=== PATIENT | male | born 1985 | race Two or more races ===

== ENCOUNTER 2022-05-18 09:03 | Emergency (ER) | payer OTHER ==
[~2022-05-18] VITALS: Ht 188 cm; Wt 98.9 kg
== END 2022-05-18 15:46 | disposition home or self-care (01) ==
LOC: ER 09:03
DX: R10.9 Unspecified abdominal pain (principal)

== ENCOUNTER 2023-04-25 08:24 | Emergency (ER) | payer OTHER ==
[~2023-04-25] VITALS: Ht 188 cm; Wt 96.2 kg
[2023-04-25 09:29] LABS: URINE APPEARANCE Clear; URINE BILIRRUBIN Negative (NEGATIVE); URINE BLOOD Negative; URINE COLOR Yellow; URINE GLUCOSE Negative (NEGATIVE); URINE LEUKOCYTE Negative; URINE NITRATE Negative; URINE PROTEIN Negative (NEGATIVE); URINE UROBILINOGEN 0.2 E.U./dl
[2023-04-25 09:32] LABS: HEMATOCRIT 44.2 % (39.0-48.0); HEMOGLOBIN 15.4 g/dL (13-16.00); MEAN CELL VOLUME 90.5 fL (80.0-100.00); MEAN CORPUSCULAR HEMOGLOBIN 31.4 pg (27.00-32.0); MEAN CORPUSCULAR HGB CONC 34.7 g/dl (32.0-36.0); PLATELET COUNT 245 K/uL (150-450); RED BLOOD COUNT 4.89 M/uL (4.00-6.00); RED CELL DISTRIBUTION WIDTH 12.8 % (11.5-14.5)
[2023-04-25 10:09] LABS: URINE BACTERIA 1.2 uL (0.0-1933); URINE EPITHELIAL CELLS 0.1 uL (0.0-38.8); URINE RBC 0.5 uL (0.0-20.8)
[2023-04-25 10:22] LABS: ALBUMIN 3.6 gm/dL (3.4-5.0); BILIRUBIN TOTAL 0.53 mg/dL (0.3-1.2); CALCIUM 9.3 mg/dL (8.5-10.1); CREATININE SERUM 0.99 mg/dL (0.70-1.30); GFR 83.72; GLOBULINA 3.3 G/DL (2.4-3.5); POTASSIUM 3.96 mEq/L (3.5-5.1); TOTAL PROTEIN 6.9 gm/dL (6.4-8.2)
== END 2023-04-25 16:00 | disposition home or self-care (01) ==
LOC: ER 08:24
PROVIDERS: Emergency Medicine
DX: R10.32 Left lower quadrant pain (principal); R42 Dizziness and giddiness; Z88.6 Allergy status to analgesic agent